=== PATIENT | female | born 1990 | race Caucasian/White ===

== ENCOUNTER 2025-02-24 13:41 | Emergency (ER) | payer BC, OTHER ==
[2025-02-24 14:32] LABS: Specific Gravity 1.006 (1.005-1.030)
[2025-02-24 14:33] LABS: Specific Gravity 1.006 (1.005-1.030); Sqamous Epithelial <5 /HPF (None Seen); Urine Bacteria <20 /HPF (<20); Urine Bilirubin NEGATIVE (Negative); Urine Blood 3+ (OVER) (Negative); Urine Clarity Extremely Turbid (Clear); Urine Color Colorless (Yellow); Urine Crystals Unidentified Few /HPF (None Seen); Urine Culture Reflex Order REFLEXED; Urine Glucose NEGATIVE (Negative); Urine Ketones NEGATIVE (Negative); Urine Microscopic Reflex YN ORDER UMIC; Urine Nitrite NEGATIVE (Negative); Urine Protein NEGATIVE (Negative); Urine RBC 21-50 /HPF (None Seen); Urine Urobilinogen Normal (Normal); Urine WBC >50 /HPF (<5); Urine WBC Clump Rare /HPF (None Seen); Urine pH 6.5 (5.0-7.0)
[2025-02-24 14:54] LABS: Absolute Eosinophils 0.1 K/uL (0-0.5); Absolute Lymphocytes (CBC) 2.1 K/uL (0.7-4.9); Absolute Monocytes 0.9 K/uL (0.1-1.3); Absolute Neutrophil 9.2 K/uL (1.8-8.0); Basophils % 0.3 % (0-1.3); Eosinophils % 0.7 % (0-4.4); Hematocrit 42.6 % (36.0-45.0); Hemoglobin 14.3 g/dL (12.0-15.0); Lymphocytes % 16.7 % (15.3-44.8); MCH 29.1 pg (27.0-35.0); MCHC 33.6 g/dL (32.0-36.0); MCV 86.7 fL (80-100); Monocytes % 7.1 % (3.3-12.3); Neutrophils % 75.2 % (41.7-73.7); Platelets 296 thou/uL (152-406); RBC Red Blood Cell Count 4.91 M/uL (3.86-4.86); Red Cell Distribution Width 13.8 % (12.1-15.2)
[2025-02-24 15:05] LABS: Albumin 3.7 g/dL (3.4-5.0); Anion Gap 10.5 mEq/L (5.0-15.0); Bilirubin Total 0.2 mg/dL (0.2-1.0); Globulin 3.7 g/dL (2.3-3.5); Potassium 3.5 mEq/L (3.5-5.1); Protein, Total 7.4 g/dL (6.4-8.2)
--- NOTE | 2025-02-24 17:23 | RAD REPORT ---
EXAMINATION: CT ABDOMEN AND PELVIS WITH CONTRAST CLINICAL INDICATION: Abdominal pain. Dysuria TECHNIQUE: CT abdomen and pelvis was performed, after the administration of 100 cc Isovue-300.. Sagit deisi and coronal reconstructions were obtained. One or more of the following dose reduction techniques were used: Automated exposure control, adjustment of the mA and kV according to patient si ze, and iterative reconstruction. Unless otherwise specified, incidental findings do not require dedicated imaging follow-up. [id number]. Oral contrast was not given which limits evaluation of bowel and appendix. COMPARISON: .None FINDINGS: Liver, spleen, pancreas and adrenals unremarkable Kidneys demonstrate symmetric and normal-appearing concentration of contrast. No mass. No hydronephro sis. No evidence of diverticulitis. 1.6 cm irregularly shaped right ovarian cyst likely has recently ruptured. No significant free fluid. No follow-up recommended.. : IMPRESSION: 1.6 cm irregularly shaped right ovarian cyst likely has recently ruptured. No significant free fluid.
--- NOTE | 2025-02-24 17:29 | ER ---
Nurse's Notes [facility] Name: Karen Diallo Age: 34 yrs Sex: Female : 1990 Arrival Date: 02/24/2025 Time: 13:41 Bed 18 Private MD: Diagnosis: UTI/ Urinary tract infection, site not specified;Other ovarian cysts Presentation: 02/24 13:51 Chief complaint: Patient states: Blood in urine, dysuria and frequency that started ph this morning. Coronavirus screen: Vaccine status: Patient reports being unvaccinated. Ebola Screen: No symptoms or risks identified at this time. Initial Sepsis Screen: Does the patient meet any 2 criteria? No. Patient's initial sepsis screen is negative. Does the patient have a suspected source of infection? No. Patient's initial sepsis screen is negative. Risk Assessment: Do you want to hurt yourself or someone else? Patient reports no desire to harm self or others. Onset of symptoms was February 24, 2025. 13:51 Method Of Arrival: Ambulatory ph 13:51 Acuity: MIHIR 3 ph Historical: - Allergies: 13:52 No Known Allergies; ph - PSHx: 13:52 None; ph - Immunization history:: Adult Immunizations unknown. - Infectious Disease History:: Denies. - Social history:: Smoking status: Patient denies any tobacco usage or history of. Screenin:35 [facility] ED Fall Risk Assessment (Adult) History of falling in the last 3 months, mb9 including since admission No falls in past 3 months (0 pts) Confusion or Disorientation No (0 pts) Intoxicated or Sedated No (0 pts) Impaired Gait No (0 pts) Mobility Assist Device Used No (0 pt) Altered Elimination No (0 pt) Score/Fall Risk Level 0 - 2 = Low Risk Oriented to surroundings, Maintained a safe environment, Educated pt \T\ family on fall prevention, incl call for assistance when getting out of bed. Abuse screen: Denies threats or abuse. Nutritional screening: No deficits noted. Tuberculosis screening: No symptoms or risk factors identified. Assessment: 14:13 General: Appears in no apparent distress. Behavior is calm, cooperative. Pain: mb9 Complains of pain in back Pain radiates to right flank Quality of pain is described as aching, dull. Neuro: Level of Consciousness is awake, alert, obeys commands, Oriented to person, place, time, situation, Appropriate for age. Cardiovascular: Patient's skin is warm and dry. Respiratory: Airway is patent. GI: Abdomen is round non-distended. : Reports burning with urination, vaginal bleeding that is. Derm: Skin is pink, warm \T\ dry. 16:39 Reassessment: No changes from previously documented assessment. Patient and/or family mb9 updated on plan of care and expected duration. Pain level reassessed. Patient is alert, oriented x 3, equal unlabored respirations, skin warm/dry/pink. Vital Signs: 13:51 BP 137 / 93; Pulse 99; Resp 18; Temp 97.4; Pulse Ox 100% on R/A; Weight 92.99 kg; ph Height 5 ft. 2 in. ; 16:39 BP 126 / 86; Pulse 76; Resp 18; Pulse Ox 100% on R/A; mb9 13:51 Body Mass Index 37.49 (92.99 kg, 157.48 cm) ph ED Course: 13:44 Patient arrived in ED. mr 13:45 Jenny Polo, GIOVANNI is PHCP. kb 13:45 Prosper Butcher MD is Attending Physician. kb 13:52 Triage completed. ph 13:52 Arm band placed on Patient placed in waiting room, Patient notified of wait time. ph 14:08 Tuyet Weston, CLIVE is Primary Nurse. mb9 14:34 Initial lab(s) drawn, by de, sent to lab. Urine collected: clean catch specimen. mb9 Inserted saline lock: 20 gauge in right antecubital area, using aseptic technique. Blood collected. Flushed with 10 mL NS. 14:35 Placed in gown. Bed in low position. Call light in reach. Side rails up X 1. Provided mb9 Education on: press call light if needing anything. Client placed on continuous cardiac and pulse oximetry monitoring. NIBP monitoring applied. 14:35 No provider procedures requiring assistance completed. mb9 16:[address] via wheelchair. mb9 17:07 CT Abd/Pelvis - IV Contrast Only In Process Unspecified. EDMS 18:03 IV discontinued, intact, bleeding controlled, No redness/swelling at site. Pressure ss dressing applied. Administered Medications: No medications were administered Medication: 14:35 VIS not applicable for this client. mb9 Outcome: 17:28 Discharge ordered by . araceli 18:03 Discharged to home ambulatory, with family, 18:03 Condition: good 18:03 Discharge instructions given to patient, family, Instructed on discharge instructions, follow up and referral plans. medication usage, Demonstrated understanding of instructions, follow-up care, medications, Prescriptions given X 2, 18:05 Patient left the ED. Signatures: Dispatcher [employer] EDNE Jenny Polo, EMERGENCY DISPATCHER-C EMERGENCY DISPATCHER-CkTuyet Thakur, Reg Reg mr Ying Bob, RN RN ss Alexus Mejia RN RN Tuyet Weston, RN RN mb9
--- NOTE | 2025-02-24 17:29 | EDPHYS ---
Physician Documentation [facility] Name: Karen Diallo Age: 34 yrs Sex: Female : 1990 Arrival Date: 02/24/2025 Time: 13:41 Bed 18 Private MD: ED Physician Prosper Butcher HPI: 02/24 13:46 This 34 yrs old Female presents to ER via Unassigned with complaints of Urinary Problem.kb 13:46 Pt is a 34 year old female who presents for back back and dysuria that started last kb week, had a telehealth visit on Wednesday and was prescribed macrobid. States symptoms improved, but this morning she woke up with pain, hematuria and dysuria. . Historical: - Allergies: 13:52 No Known Allergies; ph - PSHx: 13:52 None; ph - Immunization history:: Adult Immunizations unknown. - Infectious Disease History:: Denies. - Social history:: Smoking status: Patient denies any tobacco usage or history of. ROS: 13:47 Constitutional: As per HPI kb Exam: 13:47 Constitutional: This is a well developed, well nourished patient who is awake, alert, kb and in no acute distress. Head/Face: Normocephalic, atraumatic. ENT: Moist Mucous membranes Cardiovascular: Regular rate Respiratory: Respirations even and unlabored. No increased work of breathing. Talking in full sentences Abdomen/GI: Soft, non-tender. No distention Back: No spinal tenderness. No costovertebral tenderness. Full range of motion. Skin: Warm, dry with normal turgor. Normal color. MS/ Extremity: Pulses equal, no cyanosis. Neurovascular intact. Full, normal range of motion. Neuro: Awake and alert, GCS 15, oriented to person, place, time, and situation. Vital Signs: 13:51 BP 137 / 93; Pulse 99; Resp 18; Temp 97.4; Pulse Ox 100% on R/A; Weight 92.99 kg; ph Height 5 ft. 2 in. ; 16:39 BP 126 / 86; Pulse 76; Resp 18; Pulse Ox 100% on R/A; mb9 13:51 Body Mass Index 37.49 (92.99 kg, 157.48 cm) ph MDM: 13:45 Medical Screening Exam initiated kb 13:47 Data reviewed: vital signs, nurses notes. kb 17:27 Differential diagnosis: UTI, pyelonephritis, ovarian cyst. Counseling: I had a detailed kb discussion with the patient and/or guardian regarding the historical points, exam findings, and any diagnostic results supporting the discharge/admit diagnosis, lab results, radiology results, the need for outpatient follow up, a family practitioner, to return to the emergency department if symptoms worsen or persist or if there are any questions or concerns that arise at home. 02/24 14:09 Order name: UA Rfx Sam Cult if indicated; Complete Time: 14:34 ph 02/24 14:12 Order name: PREGU; Complete Time: 14:34 em1 02/24 14:16 Order name: CBC with Diff; Complete Time: 15:04 kb 02/24 14:16 Order name: CMP; Complete Time: 15:10 kb 02/24 14:36 Order name: Urine Culture EDMS 02/24 14:35 Order name: CT Abd/Pelvis - IV Contrast Only; Complete Time: 17:27 kb 02/24 14:16 Order name: IV Start; Complete Time: 14:47 kb Administered Medications: No medications were administered Disposition: 18:17 Co-signature as Attending Physician, Prosper Butcher MD I reviewed the patient's care rn provided by the Advanced Practice Provider and agree with the diagnosis and treatment plan. Disposition Summary: 02/24/25 17:28 Discharge Ordered Notes: Location: Home kb Condition: Stable kb Diagnosis - UTI/ Urinary tract infection, site not specified kb - Other ovarian cysts kb Followup: kb - With: Emergency Department - When: As needed - Reason: Worsening of condition Followup: kb - With: Private Physician - When: 2 - 3 days - Reason: Recheck today's complaints, Continuance of care, Re-evaluation by your physician Discharge Instructions: - Discharge Summary Sheet kb - Urinary Tract Infection, Adult, [id number] kb - Ovarian Cyst, [id number] kb Forms: - Medication Reconciliation Form kb - Antibiotic Education kb - Prescription Opioid Use kb - Patient Portal Instructions kb - Leadership Thank You Letter kb Prescriptions: - Diclofenac Sodium 75 mg Oral tablet, delayed release (enteric coated) - take 1 tablet ORAL route 2 times per day As needed; 30 tablet; Refills: 0, kb Product Selection Permitted - Bactrim DS 800-160 mg Oral Tablet - take 1 tablet ORAL route every 12 hours for 10 days; 20 tablet; Refills: 0, kb Product Selection Permitted Signatures: Dispatcher [employer] EDMS Jenny Polo, MANAGER [employer]ATE [employer]ETING-C MANAGER [employer] MARKETING-Prosper Jauregui MD MD rn Hall, Patricia, RN RN ph Corrections: (The following items were deleted from the chart) 15:24 13:47 Constitutional: This is a well developed, well nourished patient who is awake, kb alert, and in no acute distress. Head/Face: Normocephalic, atraumatic. ENT: Moist Mucous membranes Cardiovascular: Regular rate Respiratory: Respirations even and unlabored. No increased work of breathing. Talking in full sentences Abdomen/GI: Soft, non-tender. No distention Skin: Warm, dry with normal turgor. Normal color. MS/ Extremity: Pulses equal, no cyanosis. Neurovascular intact. Full, normal range of motion. Neuro: Awake and alert, GCS 15, oriented to person, place, time, and situation. kb
[2025-02-24 18:10] VITALS: TEMP 97.4; O2SAT 100
[2025-02-24 18:11] VITALS: BP 126/86
== END 2025-02-24 18:05 | disposition home or self-care (01) ==
LOC: ER 13:41
DX: N39.0 Urinary tract infection, site not specified (principal); N83.291 Other ovarian cyst, right side
CPT/HCPCS: 87088; 85025; 81001; 87086; 36415; 81025; 87077; 87186; 80053; 74177; 99284; Q9967